=== PATIENT | male | born 1945 | race Two or more races ===

== ENCOUNTER → 2024-03-22 08:42 | Outpatient (REF) | payer MEDICARE, SELFPAY | LOC: RAD 08:42 | PROVIDERS: ATTENDING PHYSICIAN Internal Medicine Hematology & Oncology; FAMILY PHYSICIAN Internal Medicine | DX: C34.32 Malignant neoplasm of lower lobe, left bronchus or lung (principal) | CPT/HCPCS: 71260; Q9967 ==

== ENCOUNTER → 2024-04-20 10:57 | Outpatient (REF) | payer MEDICARE, SELFPAY | LOC: RAD 10:57 | PROVIDERS: ATTENDING PHYSICIAN Internal Medicine Critical Care Medicine; FAMILY PHYSICIAN Internal Medicine | DX: R91.1 Solitary pulmonary nodule (principal) | CPT/HCPCS: 71250 ==

== ENCOUNTER 2024-04-26 06:12 | Day surgery (SDC) | payer MEDICARE, SELFPAY ==
[2024-04-08 14:15] VITALS: BMI 53.7
[2024-04-26] VITALS (10 sets, daily range): BP systolic 97–143; BP diastolic 53–76; BMI 39.1
== END 2024-04-26 11:01 | disposition home or self-care (01) ==
LOC: SDS 06:12
PROVIDERS: ATTENDING PHYSICIAN Internal Medicine Critical Care Medicine
DX: R91.1 Solitary pulmonary nodule (principal); G47.33 Obstructive sleep apnea (adult) (pediatric); Z87.891 Personal history of nicotine dependence; Z80.1 Family history of malignant neoplasm of trachea, bronchus and lung; Z77.090 Contact with and (suspected) exposure to asbestos
CPT/HCPCS: 31629; 31624; 31623; 31627; 31654; 88172; 88173; 88305; 71045; 74018; 76000; 87070; 87102; 87116; 87205; 88112; 88333; 88334; 94640; C1887

== ENCOUNTER → 2024-05-27 11:18 | Outpatient (REF) | payer MEDICARE, SELFPAY | LOC: RCS 11:18 | PROVIDERS: ATTENDING PHYSICIAN Physician Assistant; FAMILY PHYSICIAN Internal Medicine | DX: R07.2 Precordial pain (principal); R06.09 Other forms of dyspnea; I10 Essential (primary) hypertension; I25.118 Atherosclerotic heart disease of native coronary artery with other forms of angina pectoris | CPT/HCPCS: 93306 ==

== ENCOUNTER → 2024-11-17 13:30 | Outpatient (REF) | payer MEDICARE, SELFPAY | LOC: HWRAD 13:30 | PROVIDERS: ATTENDING PHYSICIAN Internal Medicine Critical Care Medicine; FAMILY PHYSICIAN Internal Medicine | DX: R91.1 Solitary pulmonary nodule (principal) | CPT/HCPCS: 71250 ==

== ENCOUNTER → 2025-02-28 10:25 | Outpatient (REF) | payer MEDICARE, SELFPAY | LOC: HWRAD 10:25 | PROVIDERS: ATTENDING PHYSICIAN Internal Medicine Critical Care Medicine; FAMILY PHYSICIAN Internal Medicine | DX: R91.1 Solitary pulmonary nodule (principal) | CPT/HCPCS: 71250 ==

== ENCOUNTER 2025-03-13 10:44 | Emergency (ER) | payer MEDICARE, SELFPAY ==
[2025-03-13 10:46] VITALS: BP 192/102
[2025-03-13 11:48] LABS: Hematocrit 44.1 % (39.0-52.0); Hemoglobin 15.1 g/dL (13.0-18.0); Mean Corp Hgb Conc. 34.2 g/dL (33.0-37.0); Mean Corpuscular Volume 97.4 fL (80.0-94.0); Nucleated Red Blood Cells % 0 % (-); Platelet Count 174 10^3/uL (130-400); Red Cell Dist. Width 12.5 % (11.5-14.5)
[2025-03-13 11:56] VITALS: BP 151/78
[2025-03-13 12:00] VITALS: BP 155/79
[2025-03-13 12:07] LABS: ALT (SGPT) 17 U/L (0-50); AST (SGOT) 17 U/L (17-59); Albumin 4.4 g/dl (3.5-5.0); Alkaline Phosphatase 42 U/L (38-126); Blood Urea Nitrogen 20 mg/dl (9-20); Calcium 9.7 mg/dl (8.4-10.2); Carbon Dioxide 29 mmol/L (22-30); Chloride 106 mmol/L (98-107); Glucose 122 mg/dl (70-99); Potassium 4.8 mmol/L (3.5-5.1); Sodium 141 mmol/L (135-145); Total Protein 6.6 g/dl (6.3-8.2); eGFR > 60.00
[2025-03-13 12:18] LABS: Troponin I < 0.012 ng/ml
[2025-03-13 13:00] VITALS: BP 161/74
--- NOTE | 2025-03-13 13:09 | ED.GENMED ---
History of Present Illness
General
Chief Complaint: Chest Pain
Source: patient and spouse
Exam Limitations: none
Time Seen by Provider: 03/13/25 11:49
Nursing documentation reviewed up to this point in time: agreed with
History of Present Illness
History of Present Illness:
Note:
CHIEF COMPLAINT(S)
Chest pain.
HISTORY OF PRESENT ILLNESS
The patient is a 79-year-old male with a history of atrial fibrillation and a prior myocardial infarction who presents with chest pain. The pain began approximately two to three days ago. The patient reports that the pain started after lifting a
table and describes it as being located on the lateral right chest wall, though it occasionally presents on both sides. The patient is concerned about the pain due to his cardiac history, but it is noted that previous episodes of chest pain have
warranted extensive evaluation. The patient has experienced similar episodes before, which were found to be non-cardiac in nature. Upon examination and preliminary tests, including an electrocardiogram and blood tests, no signs of a myocardial
infarction or atrial fibrillation are evident. The pain appears to be muscular in origin.
PHYSICAL EXAM
- The patient was in no acute distress and was observed eating a pretzel in bed.
- Cardiovascular: Heart sounds S1 and S2 were normal with no murmurs, no S3 or S4 gallop.
- Respiratory: Clear breath sounds bilaterally.
- Gastrointestinal: Non-tender, non-distended abdomen.
- Musculoskeletal: Bilateral lateral chest wall tenderness.
- Extremities: Normal pulses in all extremities.
PLAN
The plan is to perform a chest X-ray to further evaluate the chest pain and exclude other potential causes. The patient is advised to avoid taking non-steroidal anti-inflammatory drugs like naproxen (Aleve) but can continue to take acetaminophen
(Tylenol) for pain management. The patient is instructed to continue taking their prescribed anticoagulant medication, Eliquis, as per their usual regimen. Follow-up will be conducted after reviewing the chest X-ray results.
DIFFERENTIAL DIAGNOSIS
The Differential Diagnosis includes, in no particular order and is not limited to:
1. Musculoskeletal chest pain
2. Costochondritis
3. Cardiac chest pain (Angina)
4. Myocardial infarction
5. Pulmonary embolism
6. Pneumothorax
7. Gastroesophageal reflux disease
8. Pleuritis
9. Rib fracture
10. Anxiety-related chest pain
EKG
My independent EKG interpretation is:
- Rhythm: atial fibrillation
- Heart Rate: 74 bpm
- [place]: Right bundle branch block
- ST Changes: Nonspecific ST changes in inferior anterior leads
- QT Interval: Normal
CARE-UPDATE
03/13/25 - 14:25
Patient is resting comfortably. X-ray shows no acute findings. Comorbidities assessed as osteoporosis and anaphylaxis history. Acute coronary syndrome (ACS) and pulmonary embolism (PE) not suspected. Patients condition stable for discharge.
Follow-up arranged with primary care and cardiology. Return precautions provided to the patient.
Disposition:
SUMMARY OF ENCOUNTER
The patient, a 79-year-old male with a history of atrial fibrillation and previous myocardial infarction, presented to the emergency department with chest pain. The pain began two to three days ago and is likely musculoskeletal in origin, associated
with lifting a table. Previous episodes of non-cardiac chest pain have been extensively evaluated. Electrocardiogram and blood tests conducted show no acute cardiac event. A chest X-ray was performed, with no acute findings indicating more severe
conditions like a pulmonary embolism or myocardial infarction.
DISPOSITION
Discharge.
ASSESSMENT
The patients chest pain appears musculoskeletal and is likely related to physical activity. The episode of atrial fibrillation remains rate controlled, and the patient is in good condition.
PLAN
The patient is advised to avoid non-steroidal anti-inflammatory drugs and continue with acetaminophen for pain management. The continuation of anticoagulant therapy with Eliquis is recommended. Follow-up with primary care and cardiology is planned
post-discharge to monitor and manage any future issues.
INDEPENDENT REVIEW OF LABS AND INTERPRETATION OF TESTS
My independent EKG interpretation indicates atrial fibrillation, heart rate at 74 bpm, a right bundle branch block, and nonspecific ST changes in the inferior anterior leads, with a normal QT interval.
- My independent interpretation of the chest X-ray shows no acute findings.
PATIENT EDUCATION AND COUNSELING
The patient was informed about the musculoskeletal nature of the chest pain and the importance of adhering to the current medication regimen. Emphasized avoiding certain medications and recognizing warning signs that should prompt immediate medical
attention.
FOLLOW-UP INSTRUCTIONS
Follow-up with primary care and cardiology has been arranged, and return precautions were provided for emergent symptoms.
MEDICATION RECONCILIATION
- Continue taking acetaminophen as needed for pain.
- Continue Eliquis as prescribed for anticoagulation.
MEDICAL DECISION MAKING
- Number and Complexity of Problems Addressed: Chronic conditions affecting care include a history of atrial fibrillation and prior myocardial infarction. Differential diagnosis considered musculoskeletal chest pain, costochondritis, and
cardiac-related chest pain (angina).
- Data:
Category 1: My independent interpretation of EKG and chest x-ray.
- Risk: Consideration of admission/observation due to the complexity and risk of the patients presentation was taken, but the patient was ultimately safe for outpatient management due to stable findings and controlled symptoms.
DIAGNOSIS
- Musculoskeletal chest pain (ICD-10: M79.1)
- Atrial fibrillation, controlled (ICD-10: I48.91)
Past History
Past History
ED Past Medical History: CAD, HTN and Hypercholesterolemia
ED Past Surgical History: Cardiac (History of cardiac stent in 2006) and Orthopedic (Right knee and right shoulder surgery in the past)
Social History
Personal:
Living: with family
Phy Exam
Physical Exam
Physical Exam:
.
Scores
Heart Score for Chest Pain Patients
STEMI patient?: No
History: Slightly or Non-Suspicious
ECG: Nonspecific Repolarization
Age: >/= 65 years
Risk Factors: >/= 3 Risk Factors or History of CAD
Troponin: </= Normal Limit
Heart Score for Chest Pain Patients: 5
Heart Score Risk: 20.3% MACE over next 6 weeks
Course
Orders/Labs/Results
Orders:
Orders
03/13/25 10:45
Electrocardiogram (*1) Urgent
Reason for Study: Chest Pain
03/13/25 10:46
Electrocardiogram (*1) Urgent
Reason for Study: Chest Pain
EKG- Treatment ONCE
EKG- Treatment ONCE
03/13/25 11:37
CMP [Comprehensive Metabolic Panel] Urgent
03/13/25 11:38
Complete Blood Count/With Diff Urgent
Troponin I Urgent
03/13/25 13:18
CR Chest - 2 Views Urgent
Comment:
Reason For Exam: bilateral chest pain
Abnormal Lab Results
03/13/25 03/13/25
11:37 11:38
RBC 4.53 L 10^6/uL
(4.70-6.10)
MCV 97.4 H fL
(80.0-94.0)
MCH 33.3 H pg
(27.0-31.0)
Glucose 122 H mg/dl
(70-99)
03/13/25 11:38
03/13/25 11:37
Vital Signs
Initial and Last Documented VS:
Initial Vital Signs
Temp Pulse Resp BP Pulse Ox
97.7 F 74 16 192/102 96
03/13/25 10:46 03/13/25 10:46 03/13/25 10:46 03/13/25 10:46 03/13/25 10:46
Last Documented Vital Signs
Temp Pulse Resp BP Pulse Ox
97.7 F 68 15 168/89 98
03/13/25 10:46 03/13/25 14:30 03/13/25 14:30 03/13/25 14:00 03/13/25 14:30
*Pulse Oximetry
SaO2: 96
Oxygen Mode of Delivery: Room air
Patient hypoxic: no
*Critical Care Note
Total Time (30-74mins, 75-104mins- exclusive of procedures): Not Applicable
ED Attending Note
-
Portions of this chart may have been created with voice recognition software.� Occasional wrong word or��sound alike� substitutions may have occurred due to the inherent limitations of voice recognition software.
Discharge Plan
Departure
Patient Disposition: Home (Routine Discharge)
Date of Disposition: 03/13/25
Time of Disposition: 14:28
Patient with high blood pressure during this ER visit?: Yes
Condition: Good
Discharge Problem:
Acute chest wall pain, Atrial fibrillation
Instructions: Chest Pain That Is Not Caused by the Heart (DC), Atrial fibrillation - Discharge instructions, BLOOD PRESSURE
Prescriptions:
No Action
aspirin 81 MG tablet,chewable
81 mg PO DAILY
losartan 100 MG tablet
50 mg PO DAILY
fexofenadine 180 mg Tablet
180 mg PO PRN PRN (Reason: Allergy Symptoms)
pantoprazole 40 mg Tablet,Delayed Release (Dr/Ec)
40 mg PO DAILY
Eliquis 5 mg Tablet
5 mg PO BID
cholecalciferol (vitamin D3) [Vitamin D3] 25 mcg (1,000 unit) Capsule
25 mcg PO DAILY
omega-3 fatty acids-fish oil [Fish Oil] 360-1,200 mg Capsule
1 cap PO DAILY
Centrum Silver Men [phone] mcg Tablet
1 tab PO DAILY
loratadine [Claritin] 10 mg Tablet
10 mg PO HS PRN (Reason: Allergies)
atorvastatin 20 mg Tablet
20 mg PO DAILY
acetaminophen 500 mg Tablet
1,000 mg PO Q6H PRN (Reason: pain)
Referrals:
Jonas Duffy MD [Active, Cardiology] - Call in 1-3 days for appt
Matt Andrade MD [Family Provider] - Call in 1-3 days for appt
Interventions
Interventions:
*Risk Screen - Suicide Last Done: 03/13/25 10:47
*General Assessment Last Done: 03/13/25 14:56
*Neglect/Abuse Screening Last Done: 03/13/25 14:56
*ED- Fall Risk Assessment Last Done: 03/13/25 14:56
*ED COVID-19 Vaccine History Last Done: 03/13/25 14:56
*Nursing Disposition Last Done: 03/13/25 15:03
ED- Cardiac Assessment Last Done: 03/13/25 14:56
Discharge Date and Time
Discharge Date/Time: 03/13/25 15:04
Print Language: MONEGASQUE
[2025-03-13 14:00] VITALS: BP 168/89
== END 2025-03-13 15:04 | disposition home or self-care (01) ==
LOC: EMR 10:44
PROVIDERS: EMERGENCY PHYSICIAN Emergency Medicine; FAMILY PHYSICIAN Internal Medicine
DX: R07.89 Other chest pain (principal); M79.18 Myalgia, other site; I48.91 Unspecified atrial fibrillation; I45.10 Unspecified right bundle-branch block; I25.10 Atherosclerotic heart disease of native coronary artery without angina pectoris; I10 Essential (primary) hypertension; E78.00 Pure hypercholesterolemia, unspecified; I25.2 Old myocardial infarction; Z95.5 Presence of coronary angioplasty implant and graft; Z88.5 Allergy status to narcotic agent
CPT/HCPCS: 99283; 71046; 80053; 84484; 85025; 93005

== ENCOUNTER → 2025-06-13 12:39 | Outpatient (REF) | payer MEDICARE, SELFPAY ==
[2025-06-13 13:19] LABS: Hematocrit 42.6 % (39.0-52.0); Hemoglobin 14.6 g/dL (13.0-18.0); Mean Corp Hgb Conc. 34.3 g/dL (33.0-37.0); Mean Corpuscular Volume 95.5 fL (80.0-94.0); Nucleated Red Blood Cells % 0 % (-); Platelet Count 183 10^3/uL (130-400); Red Cell Dist. Width 12.5 % (11.5-14.5)
[2025-06-13 13:22] LABS: INR 1.20; PT 15.5 Sec (11.4-14.6)
[2025-06-13 13:30] LABS: ALT (SGPT) 21 U/L (0-50); AST (SGOT) 19 U/L (17-59); Albumin 4.5 g/dl (3.5-5.0); Alkaline Phosphatase 45 U/L (38-126); Blood Urea Nitrogen 20 mg/dl (9-20); Calcium 9.3 mg/dl (8.4-10.2); Carbon Dioxide 24 mmol/L (22-30); Chloride 108 mmol/L (98-107); Glucose 101 mg/dl (70-99); Magnesium 2.1 mg/dl (1.6-2.3); Potassium 4.8 mmol/L (3.5-5.1); Sodium 139 mmol/L (135-145); Total Protein 6.7 g/dl (6.3-8.2); eGFR > 60.00
== END ==
LOC: SDSPAT 12:39
PROVIDERS: ATTENDING PHYSICIAN Internal Medicine Cardiovascular Disease; FAMILY PHYSICIAN Internal Medicine
DX: I48.0 Paroxysmal atrial fibrillation (principal)
CPT/HCPCS: 36415; 75572; 80053; 83735; 85025; 85610; 86850; 86900; 86901; 93005; Q9967

== ENCOUNTER 2025-06-30 08:02 | Day surgery (SDC) | payer MEDICARE, SELFPAY ==
[2025-06-13 13:14] VITALS: BMI 42.8
[2025-06-30] VITALS (15 sets, daily range): BP systolic 99–165; BP diastolic 54–85; BMI 42.8
[2025-06-30 11:13] LABS: ACT-LR - POC 258 Seconds (116-155)
[2025-06-30 11:40] LABS: ACT-LR - POC 295 Seconds (116-155)
--- NOTE | 2025-06-30 11:53 | ITS.CL.ABL ---
[employer] - Ablation
Ablation
Procedure Report:
ELECTROPHYSIOLOGY ABLATION STUDY
DATE:: June 30, 2025�����������������������������REFERRING: Dr. Lan Escoto
INDICATION: Paroxysmal supraventricular tachycardia in the form of atrial fibrillation.� Presents with persistent atrial flutter determined to be typical appearing which is refractory to medication and cardioversion
HISTORY: See H and P.��As above
ANTIARRHYTHMIC DRUG: Atenolol
PRE-PROCEDURE BELEM: No intracardiac thrombus
PRESENTING RHYTHM: Atrial flutter cycle length to 30 ms determined to be CTI dependent
'TIME-OUT':��called and confirmed.
SEDATION/ANESTHESIA:��provided via the anesthesia department using general anesthesia (LMA).
INTRAVENOUS/ARTERIAL ACCESS:
Right femoral venous -8Fr
Left femoral venous - 8 Fr, 6 Fr
[id number] suture bilaterally
Ultrasound guidance for bilateral femoral vein access was utilized by me to obtain access with demonstration of normal anatomy
CHADS-VASC Score:
HAS-Bled Score
PROCEDURE:
1.��A decapolar CS catheter was placed within the CS for mapping and pacing.��This was also used as the reference catheter for the 3-D map. Decapolar catheter was placed into the coronary sinus and around the charly terminalis with PPI equal to
tachycardia cycle length from the lateral RA, CTI, proximal coronary sinus and 40 ms long from the distal coronary sinus. Demonstrating macro reentry in a counterclockwise fashion about the tricuspid annulus. We upgraded the 10 Indonesian steerable
sheath and utilizing radiofrequency energy at 400 W for up to 4 seconds at the annulus and from mid isthmus back to the IVC PFA lesions tachycardia slowed then terminated with persistent bidirectional block intra isthmus conduction time of
approximately 154 ms bilaterally. At the end of the procedure after a 45-minute waiting period persistent bidirectional block remained. The patient was noninducible for any other tachyarrhythmia.
2. The intracardiac ultrasound catheter was positioned in the RA to identify the FO for targeting of transseptal puncture, assist��in identification of the pulmonary vein ostia, monitoring pre and post ablation pulmonary vein flow velocities,
monitoring for 'bubble' formation during RF application as a sign of thermal injury,��and to monitor for pericardial effusion during mapping and ablation procedure.���Left atrial size, LV ejection fraction, and pulmonary vein flows were monitored
pre and post ablation procedure. The other valves were inspected and found to be free of significant regurgitation or stenosis.
3.��Half of the calculated heparin bolus was administered prior to the first transeptal puncture.��Transseptal puncture was performed to diagnose RA and LA pressure so that safetey of LA mapping and ablation could be further assessed, and to access
the left atrium and pulmonary veins for mapping and ablation.��This entailed advancing an 10 Indonesian steerable sheath with dilator into the superior vena cava and withdrawing both (monitoring intracardiac ultrasound, fluoroscopy and tip pressure)
with the tip oriented toward the atrial septum.��The fossa ovalis was engaged (indicated by sudden displacement of the sheath tip as well as tenting of the fossa seen on intracardiac ultrasound).��Left atrial access required a pass with the
[place] needle extended.��Left atrial catheter position was confirmed by pressure monitoring (RA mean pressure 4 mm Hg and LA mean pressure 20 mm Hg), LA saturation (99%),��as well as fluoroscopy.��The sheath was advanced over the dilator and
positioned in the left atrium.��This procedure was repeated for the Agilis sheath.��The remainder of the calculated heparin bolus was administered and heparin was
infused to maintain ACT at 300 -350 seconds throughout the case.
4.��RA pacing was performed via the proximal decapolar poles and LA pacing was performed via the distal decapolr poles.
5. A quadrapolar catheter was first positioned at the His position for His Bundle recording which was tagged via the 3-D Navex sytem, and then passed to the RVA for RV pacing and recording.
6. The 9 mm lattice was placed in each of the LIPV, LSPV, RSPV and the RIPV.��
7.��Next, a 3-D map was created using Navex.���A 3-D reconstructed CT image was compared to the 3-D Navex map to assist in anatomic interpretation, mapping and ablation.��The CT image and the NavX image were fused.
8. Utilizing the 9 mm lattice circumferential lesions were placed around the left and right pulmonary veins with entrance and exit block confirmed. Posterior wall box lesion set with roofline and floor line connecting to the wide cantwell ablation
rendered the roof posterior wall and floor of the left atrium isolated with entrance and exit block. We also targeted CTI flutter as above with persistent bidirectional block at end of procedure. The patient was noninducible for other nonpulmonary
vein triggers for atrial fibrillation after ablation was performed.
9. There was trace pericardial effusion both pre and post procedure which was unchanged.
TOTAL FLOURO TIME: 12.4 minutes 123 mGy
TOTAL RF DURATION: 1 minutes
REVERSAL OF HEPARIN: 35 mg of protamine, slow IV administration
COMPLICATIONS:
None
Intracardiac US shows no pericardial effusion post ablation.
SUMMARY:��
Complex left atrial mapping and ablation.
Isolation of all 4 pulmonary veins and the posterior wall as above. Clinical arrhythmia was counterclockwise CTI flutter which was slowed and terminated with ablation as above.
RECOMMENDATIONS:
1. Ambulate in 4 hours
2. Resume anticoagulation
3.��Consider same-day discharge
4.��With any further acute recurrence could consider antiarrhythmic drug therapy with amiodarone
Copy to: Dr. Lan Escoto
[2025-06-30] MEDS: ANESTHETIC LOZENGE 1 LOZENGE PO ×2 (14:16→18:30)
--- NOTE | 2025-06-30 15:49 | W.PN.UPDATE ---
Addendum entered and electronically signed by ANTOINE Norton 06/30/25 17:25:
After pt oob ambulating R groin with small slow ooze even with syvek patch, manual pressure held. We will admit o/n for observation with initiation of OAC this evening. Family and Dr. Duffy agree with plan.
Original Note:
Update Note
Progress Note Update
80 yo WM s/p PVI (same day). He denies cp, sob, felicitas diet, voiding, EKG SR RBBB, b/l groins c/d/i. He will resume Eliquis tonight after 6pm. ACtivity restrictions reviewed. He will f/u Dr. Duffy in 3mo. HE is for dc/ home after 445p if groins
stable.
--- NOTE | 2025-06-30 18:05 | PTCARENOTE ---
Rec'd report from Rosemary in the chemical laboratory assistant; Rec'd pt AAOX3 w/no c/o CP or SOB. Pt did appear dyspneic on exertion as pt ambulated into the BR on arrival to the . Pt's VSS w/HR in the 80's & BP 147/82. Pt's O2 sats 96% on RA. Pt w/bilat groin sites
w/dressings intact. L groin dressing w/no signs or symptoms of bleeding or hematoma. R groin w/no signs or symptom of hematoma, but there is a slight ooze at the site. Dressing marked for monitoring. Pt's advised of plan of care for the night. Call
finch within reach & plan of care ongoing.
[2025-06-30] MEDS: ELIQUIS 5 MG PO (20:14)
[2025-06-30] MEDS: TYLENOL 650 MG PO (22:25)
[2025-06-30] MEDS: TENORMIN 25 MG PO (22:25)
[2025-06-30] MEDS: LIPITOR 20 MG PO (22:27)
[2025-06-30] MEDS: REFRESH EYE DROPS (PF) 1 DROPS OPHTH (22:27)
[2025-07-01 03:52] VITALS: BP 111/61
[2025-07-01 04:31] LABS: Hematocrit 37.8 % (39.0-52.0); Hemoglobin 12.9 g/dL (13.0-18.0); Mean Corp Hgb Conc. 34.1 g/dL (33.0-37.0); Mean Corpuscular Volume 96.4 fL (80.0-94.0); Platelet Count 201 10^3/uL (130-400); Red Cell Dist. Width 13.2 % (11.5-14.5)
[2025-07-01 04:43] LABS: Blood Urea Nitrogen 21 mg/dl (9-20); Calcium 9.2 mg/dl (8.4-10.2); Carbon Dioxide 25 mmol/L (22-30); Chloride 109 mmol/L (98-107); Estimated Creatinine Clearance 108 ml/min; Glucose 120 mg/dl (70-99); Magnesium 2.1 mg/dl (1.6-2.3); Potassium 4.6 mmol/L (3.5-5.1); Sodium 141 mmol/L (135-145); eGFR > 60.00
--- NOTE | 2025-07-01 06:20 | PTCARENOTE ---
Assumed care on pt at 1900, aaox3, denied cp or SOB. R groin dressing intact with small old drainage, marked. L groin dsg CDI. SR w/ BBB on the monitor, HR 70-80's. Ambulating self in the room, steady gait, good urine output. Call finch within reach,
POC ongoing.
--- NOTE | 2025-07-01 07:44 | W.PN.CARDCBS ---
Addendum entered and electronically signed by Jonas Duffy MD 07/01/25 09:22:
Patient seen and examined
Agree with HANDBOOK WRITER note and assessment
Agree with HANDBOOK WRITER plan
Exam:
Alert orient x 3
Nonfocal neurologically
Cor regular
Telemetry reviewed rare PACs with sinus rhythm
Bilateral groins clean dry and intact
Remainder of exam as per HANDBOOK WRITER note
PCP: Matt Andrade MD
CDY: Jonas Duffy MD
80 y/o, presents with PSVT in the form of atrial fibrillation, as well as persistent atrial flutter. S/P PFA, LAPW ablation as well as CTI flutter ablation. [id number], on eliquis.
Persistent mild groin ooze post procedure and therefore pt admitted for observation. Groin stable with no further oozing or bleeding overnight.
IMPRESSION:
PAFib, AFlutter
s/p PFA, CTI flutter ablation, 06/30/25
CAD w/prior PCI
RBBB
AAA, s/p repair (2019)
HTN
HLD
CORRINE/CPAP
Prior PE/DVT
GERD
Asbestosis w/Lung Ca, s/p LLL lobectomy (2015)
PLAN:
Tele- NSR w/PAC, no arrhythmia. He feels much better in sinus rhythm.
bilat groin sites stable without further bleeding/oozing
Continue eliquis
consider antiarrhythmic drug therapy with amiodarone if any further recurrence.
followup with Dr. Duffy as scheduled
home today stable for discharge
Original Note:
Today's Communication / Plan
-
Continue eliquis
followup with Dr. Duffy
home today
Impression / Plan
-
PCP: Matt Andrade MD
CDY: Jonas Duffy MD
80 y/o, presents with PSVT in the form of atrial fibrillation, as well as persistent atrial flutter. S/P PFA, LAPW ablation as well as CTI flutter ablation. [id number], on eliquis.
Persistent mild groin ooze post procedure and therefore pt admitted for observation. Groin stable with no further oozing or bleeding overnight.
IMPRESSION:
PAFib, AFlutter
s/p PFA, CTI flutter ablation, 06/30/25
CAD w/prior PCI
RBBB
AAA, s/p repair (2019)
HTN
HLD
CORRINE/CPAP
Prior PE/DVT
GERD
Asbestosis w/Lung Ca, s/p LLL lobectomy (2015)
PLAN:
Tele- NSR w/PAC, no arrhythmia
bilat groin sites stable without further bleeding/oozing
Continue eliquis
consider antiarrhythmic drug therapy with amiodarone if any further recurrence.
concerned about constipation- will give colace now and OK to take it twice a day as needed.
followup with Dr. Duffy as scheduled
home today
Progress Note - Director Of Athletics
Subjective
Date of Service: July 01, 2025
Denies cp/palps/dyspnea
groin site without pain, no bleeding overnight
oob ambulating
Objective
Labs:
07/01/25 03:50
07/01/25 03:50
Labs
Hgb 12.9 g/dL (13.0-18.0) L 07/01/25 03:50
Hct 37.8 % (39.0-52.0) L 07/01/25 03:50
Plt Count 201 10^3/uL (130-400) 07/01/25 03:50
Sodium 141 mmol/L (135-145) 07/01/25 03:50
Potassium 4.6 mmol/L (3.5-5.1) 07/01/25 03:50
BUN 21 mg/dl (9-20) H 07/01/25 03:50
Creatinine 0.7 mg/dL (0.7-1.3) 07/01/25 03:50
Glucose 120 mg/dl (70-99) H 07/01/25 03:50
Vital Signs and I&O:
Vital Signs
Temp Pulse Resp BP Pulse Ox
98.0 F 64 20 111/61 96
07/01/25 04:15 07/01/25 06:00 07/01/25 04:15 07/01/25 03:52 07/01/25 04:15
Vital Signs
Temp Pulse Resp BP Pulse Ox
98.0 F 64 20 111/61 96
07/01/25 04:15 07/01/25 06:00 07/01/25 04:15 07/01/25 03:52 07/01/25 04:15
Intake & Output
06/29/25 06/30/25 07/01/25 07/02/25
06:59 06:59 06:59 06:59
Intake Total 720 / 720
Output Total 400 / 400
Balance 320 / 320
Physical Exam
Physical Exam
AAOx3, MAEE 5/5
RRR S1 S2 no murmurs
CTA bilat, non labored
soft abd, + bs
bilat groin sites without ht/bleeding, non tender
bilat extremities w/palpable distal pulses, no edema
[2025-07-01 08:09] VITALS: BP 120/58
[2025-07-01] MEDS: COZAAR 100 MG PO (08:19)
[2025-07-01] MEDS: ELIQUIS 5 MG PO (08:19)
[2025-07-01] MEDS: PROTONIX 40 MG PO (08:19)
[2025-07-01] MEDS: REFRESH EYE DROPS (PF) 1 DROPS OPHTH (08:20)
[2025-07-01] MEDS: COLACE 100 MG PO (08:26)
--- NOTE | 2025-07-01 08:31 | CM ---
Chart reviewed. Patient is independent of ADLS, lives with his in a 2 [address], 3 [address]AYE, 0 DME. Plan is for the patient to return home.
--- NOTE | 2025-07-01 08:33 | W.DS.TRANS ---
DC Summary - Nursing Informatics Specialist
-
Discharge Instructions:
Discharge Diagnosis/Procedures Atrial fibrillation post ablation
Diet Low Cholesterol
Driving Restrictions No driving for 24 hours
Instructions:
Stand-Alone Forms: DC Instructions- Cath/EP Lab
Changes to Home Medications: No
Discharge Medications:
DC Medications w/original date entered in [facility]
aspirin 81 mg chewable tablet 162 mg PO DAILY Blood Clot Prevention/Tx 09/04/14
losartan 100 mg tablet 100 mg PO DAILY Blood Pressure 09/04/14
apixaban 5 mg tablet (Eliquis) 5 mg PO BID Blood Clot Prevention/Tx 03/28/23
lejwzgmu-ei-zonmo 300 mcg-K 60 mcg-lycop 600 mcg-lutein 300 mcg tablet (Centrum Silver Men) 1 tab PO DAILY Supplement 03/28/23
pantoprazole 40 mg tablet,delayed release 40 mg PO DAILY Gastrointestinal Issue 03/28/23
loratadine 10 mg tablet (Claritin) 10 mg PO HS PRN Allergies 03/29/23
acetaminophen 500 mg tablet 1,000 mg PO Q6H PRN pain 04/23/24
atorvastatin 20 mg tablet 20 mg PO HS 04/23/24
atenolol 25 mg tablet 25 mg PO HS 06/10/25
calcium carbonate 1,200 mg PO DAILY 06/30/25
cholecalciferol (vitamin D3) 50 mcg (2,000 unit) tablet (Vitamin D3) 200 mcg PO DAILY 06/30/25
cod liver oil 1 cap PO DAILY 06/30/25
dextran 70-hypromellose eye drops in a dropperette 1 drp ophthalmic (eye) TID 06/30/25
fluticasone propionate 50 mcg/actuation nasal spray,suspension 1 spray intranasal DAILY 06/30/25
ipratropium bromide 21 mcg (0.03 %) nasal spray 2 spray intranasal BID PRN nasal congestion 06/30/25
tramadol 50 mg tablet 100 mg PO DAILY PRN pain 06/30/25
Home Medication Changes
Pending Results: No
--- NOTE | 2025-07-01 10:33 | PTCARENOTE ---
Checked pt's B/L groin sites, CDI. Pt denies pain at this time, pt SR on the monitor, VSS. Pt educated on plan of care.
Discharge instructions read to patient. Pt verbalized understanding. IV and tele pack removed. Pt left via W/C with belongings from room and D/C instructions with staff member.
== END 2025-07-01 10:25 | disposition home or self-care (01) ==
LOC: CATH 08:02
PROVIDERS: Nurse Practitioner Adult Health; ATTENDING PHYSICIAN Internal Medicine Cardiovascular Disease; FAMILY PHYSICIAN Internal Medicine
DX: I48.19 Other persistent atrial fibrillation (principal); Z68.41 Body mass index [BMI] 40.0-44.9, adult; I48.92 Unspecified atrial flutter; I10 Essential (primary) hypertension; E78.5 Hyperlipidemia, unspecified; Z90.2 Acquired absence of lung [part of]; Z86.711 Personal history of pulmonary embolism; R91.1 Solitary pulmonary nodule; G47.33 Obstructive sleep apnea (adult) (pediatric); F51.9 Sleep disorder not due to a substance or known physiological condition, unspecified; K21.9 Gastro-esophageal reflux disease without esophagitis; E04.1 Nontoxic single thyroid nodule; Z79.899 Other long term (current) drug therapy; Z88.5 Allergy status to narcotic agent; E66.01 Morbid (severe) obesity due to excess calories; Z85.118 Personal history of other malignant neoplasm of bronchus and lung; Z79.01 Long term (current) use of anticoagulants; Z79.82 Long term (current) use of aspirin; Z87.891 Personal history of nicotine dependence; I25.10 Atherosclerotic heart disease of native coronary artery without angina pectoris; I45.10 Unspecified right bundle-branch block; I47.10 Supraventricular tachycardia, unspecified; I71.40 Abdominal aortic aneurysm, without rupture, unspecified; Z86.718 Personal history of other venous thrombosis and embolism; Z77.090 Contact with and (suspected) exposure to asbestos; Z96.641 Presence of right artificial hip joint; Z96.653 Presence of artificial knee joint, bilateral
CPT/HCPCS: C1894; C1730; C1733; C1892; C1759; 80048; 83735; 85027; 85347; 86900; 86901; 93005; 93655; 93656; C1766